=== PATIENT | female | born 1985 | race Caucasian/White ===

== ENCOUNTER 2017-06-01 15:24 | Emergency (ER) | payer OTHER ==
[~2017-06-01 15:24] MED LIST: ALBUTEROL17 GM INH; AMOXICILLIN875 MG PO; AMOXIL500 M1 PO; AURALGAN EAR DR14 ML OT; BENZONATATE PO; CIPRO PO; DELTASONE20 MG PO; NO MEDICATIONS; OCUFLOX10 ML OP; PEN-VEE K PO; PYRIDIUM PO; TYLENOL #3 PO; VIGAMOX3 M1 OS; ZITHROMAX PO
== END 2017-06-01 17:01 | disposition home or self-care (01) ==
LOC: SED 15:24
DX: H10.31 Unspecified acute conjunctivitis, right eye (principal); Z23 Encounter for immunization
CPT/HCPCS: 90471; 90715; 99283